=== PATIENT | female | born 1985 | race Caucasian/White ===

== ENCOUNTER 2016-05-31 21:13 | Emergency (ER) | payer OTHER ==
[~2016-05-31] VITALS: Ht 165.1 cm; Wt 45.4 kg
[2016-05-31] MEDS ORDERED: IBUPROFEN800 M1 PO (21:39)
[2016-05-31] MEDS ORDERED: TRAMADOL HCL50 M1 PO (21:39)
--- NOTE | 2016-05-31 22:08 | ED UPPER/LOWER EXTREMITY COMPL ---
History of Present Illness General Chief Complaint: Upper Extremity Problem Stated Complaint: PT RG SHOULDER HAS PAIN FOR FEW DAYS Source: patient Exam Limitations: no limitations Vital Signs & Intake/Output Vital Signs & Intake/Output Vital Signs Date Time Temp Pulse Resp B/P Pulse O2 O2 Flow FiO2 Ox Delivery Rate 05/310 97.0 82 18 117/53 98 Room Air 05/31 2120 97.6 78 18 109/64 97 Room Air ED Intake and Output 06/01 0000 05/31 1200 Intake Total Output Total Balance Patient 99 lb 15.99 oz Weight Allergies Coded Allergies: No Known Allergies (05/31/16) Reconcile Medications Hydrocodone/Acetaminophen (Hydrocodon-Acetaminophen 5-325) 5 MG-325 MG TABLET 1-2 TAB PO Q4-6 PRN PRN pain Ibuprofen 800 MG TABLET 1 TAB PO TID PAIN (Reported) Tramadol HCl 50 MG TABLET 1 TAB PO TIDPRN PAIN (Reported) Triage Note: PT TO TRIAGE WITH C/O R SHOULDER PAIN 8/ x6DAYS, LIMITED ROM, PT DENIES ANY INJURY. VSS. 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 Triage Nurses Notes Reviewed? yes Onset: Abrupt Duration: day(s): (6), constant, continues in ED Timing: recent history Severity: moderate, severe Pain/Injury Location: Right: Shoulder. No Modifying Factors: none : No Patient currently breastfeeds: No HPI: 22-year-old female comes into emergency room for further evaluation of right shoulder pain. Patient reports that she woke up this past Wednesday with pain. Severe limited range of motion. She denies any falls or trauma that she is aware of. Pain hurts with any type of movement including just lifting her arm up. Denies any fever chills. Denies any other associated symptoms. ([place]) Past History Travel History Traveled to [place] past 21 day No Medical History Any Pertinent Medical History? see below for history Surgical History Surgical History: non-contributory Psychosocial History What is your primary language Divehi Tobacco Use: Current Daily Use Daily Tobacco Use Amount/Type: => 5 Cigarettes daily Family History Hx Contributory? No ([place]) Review of Systems Review of Systems Constitutional: Reports: no symptoms. EENTM: Reports: no symptoms. Respiratory: Reports: no symptoms. Cardiovascular: Reports: no symptoms. Gastrointestinal/Abdominal: Reports: no symptoms. Genitourinary: Reports: no symptoms. Musculoskeletal: Reports: see HPI. Skin: Reports: no symptoms. Neurological/Psychological: Reports: no symptoms. Hematologic/Endocrine: Reports: no symptoms. Immunological: Reports: no symptoms. All Other Systems: Reviewed and Negative ([place]) Physical Exam Physical Exam General Appearance: well developed/nourished, mild distress Head: atraumatic Eyes: Bilateral: normal appearance. Ears, Nose, Throat: normal ENT inspection, hearing grossly normal Neck: normal inspection Cardiovascular/Respiratory: no respiratory distress Back: normal inspection Shoulder Right: soft tissue tenderness, limited range of motion, PAIN WITH ABDUCTION, NEGATIVE EMPTY CAN TEST, POSITIVE o'[place]amika TEST Neurologic/Tendon: normal sensation, normal motor functions, normal tendon functions, responds to pain, no evidence tendon injury, no pulse deficit Skin: intact, normal color, warm/dry Lymphatic: no anterior cervical patricia ([place]) Progress Differential Diagnosis: contusion, dislocation, fracture, gout, septic arthritis , sprain, tendon injury, rotator cuff injury, Plan of Care: Orders Procedure Date/time Status Durable Medical Equipment 05/31 2238 Active Laboratory Tests 05/31/162133: Urine Test Cancelled Diagnostic Imaging: Viewed by Me: Radiology Read. Discussed w/RAD: Radiology Read. Radiology Impression: SERVICE DATE: 05/31/16-2125 EXAM TYPE: RAD - XRY- SHOULDER COMPLETE-RIGHT EXAMINATION: SHOULDER 4 VIEWS, RIGHT CLINICAL INFORMATION: Right shoulder pain. COMPARISON: None. TECHNIQUE: AP views of the right shoulder were obtained in internal and external rotation. In addition, axillary and Y views were obtained. FINDINGS: There is a partially well- corticated ossification along the inferior rim of the glenoid. No additional osseous abnormalities are identified. The humeral head is seated within a well- formed glenoid. The AC joint is intact. IMPRESSION: Partially well-corticated ossification along the inferior rim of the glenoid. This is likely chronic and may correspond to a remote injury, though an acute small avulsion cannot be excluded. The remainder of the osseous structures are unremarkable. DICTATED BY: ELVIN WEBSTER MD DATE/TIME DICTATED:05/31/162215 AXLE POLISHER:DIONICIO ([place]) Departure Departure Disposition: HOME OR SELF CARE Condition: Stable Clinical Impression Primary Impression: Rotator cuff injury Referrals: DANNY MARTÍNEZ,EVELIO Nunes PATIENT HAS NO PRIMARY CARE DR (PCP/Family) Additional Instructions: Take hydrocodone as prescribed. Follow-up with orthopedic doctor provided. Return to the emergency room immediately if any other concerns worsening symptoms. No heavy lifting with right shoulder until follow-up with orthopedic. Departure Forms: Customer Survey General Discharge Information Prescriptions: Current Visit Scripts Hydrocodone/Acetaminophen (Hydrocodon-Acetaminophen 5-325) 1-2 TAB PO Q4-6 PRN PRN pain #15 TAB ([place]) PA/TURBINE ATTENDANT Co-Sign Statement Statement: ED Attending supervision documentation- [] I saw and evaluated the patient. I have also reviewed all the pertinent lab results and diagnostic results. I agree with the findings and the plan of care as documented in the PA's/TURBINE ATTENDANT's documentation. [x] I have reviewed the ED Record and agree with the PA's/TURBINE ATTENDANT's documentation. [] Additions or exceptions (if any) to the PAs/TURBINE ATTENDANT's note and plan are summarized below: [] (ED MARTÍNEZ,MALINDA Cid) Procedures Splinting Location: right shoulder Manual Alignment Performed: No Pre-Made Type: shoulder immobilizer Splint Applied By: splint applied by me Pre-Proc Neuro Vasc Exam: normal Post-Proc Neuro Vasc Exam: normal ([place])
--- NOTE | 2016-05-31 22:20 | RADIOLOGY REPORT ---
EXAMINATION: SHOULDER 4 VIEWS, RIGHT CLINICAL INFORMATION: Right shoulder pain. COMPARISON: None. TECHNIQUE: AP views of the right shoulder were obtained in internal and external rotation. In addition, axillary and Y views were obtained. FINDINGS: There is a partially well-corticated ossification along the inferior rim of the glenoid. No additional osseous abnormalities are identified. The humeral head is seated within a well-formed glenoid. The AC joint is intact. IMPRESSION: Partially well-corticated ossification along the inferior rim of the glenoid. This is likely chronic and may correspond to a remote injury, though an acute small avulsion cannot be excluded. The remainder of the osseous structures are unremarkable.
[2016-05-31] MEDS ORDERED: HYDROCODON-ACE1 EAC2 PO (22:43)
[2016-05-31 23:20] VITALS: BP 117/53
== END 2016-05-31 23:21 ==
LOC: ERH 21:13
DX: S46.001A Unspecified injury of muscle(s) and tendon(s) of the rotator cuff of right shoulder, initial encounter (principal); X58.XXXA Exposure to other specified factors, initial encounter
CPT/HCPCS: 73030-RT; 81025